=== PATIENT | male | born 1955 | race African-American/Black ===

== ENCOUNTER 2024-09-26 05:00 | Emergency (ER) | payer MEDICARE, MEDICAID ==
[2024-09-26 05:06] VITALS: PULSE 82; RESP 20; O2SAT 100
== END 2024-09-26 05:38 | disposition left against medical advice (07) ==
LOC: ER 05:13
DX: M54.2 Cervicalgia (principal); Z53.21 Procedure and treatment not carried out due to patient leaving prior to being seen by health care provider